=== PATIENT | female | born 1995 | race Caucasian/White ===

== ENCOUNTER 2016-07-28 03:44 | Emergency (ER) | payer MEDICAID, OTHER ==
[2016-07-28] MEDS ORDERED: Ondansetron INJ* 2 MG/ML VIAL IV ONE ×2 (04:00→06:07)
[2016-07-28] MEDS ORDERED: NS 0.9% 1000 ML* 1,000 ML IV ONE ×2 (04:00→05:39)
[2016-07-28 04:06] VITALS: BP 135/90
[2016-07-28 04:55] LABS: Hematocrit 43 % (35-47); Hemoglobin 14.1 g/dl (12.0-16.0); Mean Corpuscular HGB Conc 33 g/dl (31-36); Mean Corpuscular Hemoglobin 29 pg (27-31); Mean Corpuscular Volume 88 fL (80-97); Mean Platelet Volume 11 um3 (7.4-10.4); Red Blood Count 4.94 10^6/ul (4.0-5.4); Red Cell Distribution Width 13 % (10.5-15); White Blood Count 18.1 10^3/ul (3.5-10.8)
[2016-07-28 04:56] LABS: Add Diff/Slide Review? Slide Review Added; Comments Flag Yes
[2016-07-28 05:06] LABS: ALT 29 U/L (7-52); AST 18 U/L (13-39); Albumin 4.3 g/dL (3.2-5.2); Alkaline Phosphatase 68 U/L (34-104); Anion Gap 5 mmol/L (2-11); BUN/Creatinine Ratio 12.8 (8-20); Blood Urea Nitrogen 10 mg/dL (6-24); C Reactive Protein 2.36 mg/L (< 5.00); CO2 Carbon Dioxide 24 mmol/L (22-32); Calcium 9.7 mg/dL (8.6-10.3); Chloride 108 mmol/L (101-111); EGFR African American 121.1 (>60); EGFR Non-African American 94.2 (>60); Glucose 138 mg/dL (70-100); Lipase 20 U/L (11.0-82.0); Potassium 3.5 mmol/L (3.5-5.0); Sodium 137 mmol/L (133-145); Total Protein 7.3 g/dL (6.4-8.9)
[2016-07-28] MEDS ORDERED: Morphine INJ* 4 MG/ML 1 ML CARPUJECT IV ONE (05:15)
[2016-07-28] MEDS ORDERED: Ondansetron TAB* 4 MG PO ONE (06:08)
--- NOTE | 2016-07-28 06:10 | ED ---
Cecelia Gilbert Anna, scribed for Rody Soto MD on 07/28/16 at 0414 . GI/ HPI - HPI Summary HPI Summary: Patient is a 21 y/o female coming to [facility] presenting with sudden onset of repeated n/v/d that began three hours ago. She additionally reports stabbing abdominal pain. She describes the severity of her pain as 10/10. Hx is significant for ovarian cysts, bulimia, and cholecystectomy. LNMP today. . - History of Current Complaint Time Seen by Provider: 07/28/16 03:57 Stated Complaint: ABD PAIN/VOMITING Hx Obtained From: Patient Onset/Duration: Started Hours Ago, Still Present Severity: Moderate Current Severity: Moderate Pain Intensity: 10 Associated Signs and Symptoms: Positive: Nausea, Vomiting, Diarrhea - Allergy/Home Medications Allergies/Adverse Reactions: Allergies Allergy/AdvReac Type Severity Reaction Status Date / Time Ibuprofen Allergy Vomiting Verified 07/03/16 09:18 Tramadol AdvReac Hives Verified 06/06/16 17:00 PMH/Surg Hx/FS Hx/Imm Hx Endocrine/Hematology History: Denies: Hx Anticoagulant Therapy, Hx Diabetes, Hx Thyroid Disease Cardiovascular History: Denies: Hx Congestive Heart Failure, Hx Hypertension, Hx Pacemaker/ICD Respiratory History: Reports: Hx Asthma Denies: Hx Chronic Obstructive Pulmonary Disease (COPD) GI History: Reports: Hx Gastroesophageal Reflux Disease Denies: Hx Ulcer Comment Only: Other GI Disorders - OVARIAN CYSTS History: Reports: Other Problems/Disorders - ovarian cysts Denies: Hx Renal Disease Musculoskeletal History: Reports: Other Musculoskeletal History - morbid obesity Sensory History: Denies: Hx Contacts or Glasses, Hx Hearing Aid Opthamlomology History: Denies: Hx Contacts or Glasses Neurological History: Denies: Hx Dementia, Hx Seizures Psychiatric History: Reports: Hx Eating Disorder - bulemia age 13-17, Hx Depression Denies: Hx of Violent Episodes Against Others, Hx Substance Abuse - Surgical History Surgery Procedure, Year, and Place: Tonsills and Adenoids removed as a child, S/ P [facility] Hx Anesthesia Reactions: No Infectious Disease History: No Infectious Disease History: Denies: Hx Hepatitis, Hx Human Immunodeficiency Virus (HIV), Traveled Outside the [place] in Last 30 Days - Family History Known Family History: Positive: Other - Hx Bipolar disorder in mother; Hx alcohol abuse in grandmother Negative: Cardiac Disease, Hypertension, Diabetes - Social History 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 Lives: With Family Alcohol Use: None Substance Use Type: Reports: None Smoking Status (MU): Former Smoker Review of Systems Constitutional: Negative Eyes: Negative ENT: Negative Cardiovascular: Negative Respiratory: Negative Positive: Abdominal Pain, Vomiting, Diarrhea, Nausea Genitourinary: Negative Musculoskeletal: Negative Skin: Negative Neurological: Negative Psychological: Normal All Other Systems Reviewed And Are Negative: Yes Physical Exam Triage Information Reviewed: Yes Vital Signs On Initial Exam: Initial Vitals Temp Pulse Resp BP Pulse Ox 97.7 F 62 16 135/90 100 07/28/16 04:03 07/28/16 04:03 07/28/16 04:03 07/28/16 04:03 07/28/16 04:03 Vital Signs Reviewed: Yes Appearance: Positive: Ill-Appearing - moderately, Pain Distress - mild, Obese - morbidly Skin: Positive: Warm, Skin Color Reflects Adequate Perfusion, Dry Eyes: Positive: EOMI, AGUSTÍN ENT: Positive: Pharynx normal, TMs normal, Other - dry mucous membrane Neck: Positive: Supple, Nontender Respiratory/Lung Sounds: Positive: Clear to Auscultation, Breath Sounds Present Cardiovascular: Positive: RRR, Other - no gallops. Negative: Murmur, Rub Abdomen Description: Positive: Nontender, Soft, Other: - no rebound. Negative: Distended, Guarding Bowel Sounds: Positive: Present Musculoskeletal: Positive: Strength/ROM Intact. Negative: Edema Left, Edema Right Neurological: Positive: Sensory/Motor Intact, Alert, Oriented to Person Place, Time, CN Intact II-III - II-XII Psychiatric: Positive: Affect/Mood Appropriate Diagnostics - Vital Signs Vital Signs Temp Pulse Resp BP Pulse Ox 07/28/16 04:03 97.7 F 62 16 135/90 100 - Laboratory Lab Results: Lab Results 07/28/16 07/28/16 Range/Units 04:30 04:30 WBC 18.1 H (3.5-10.8) 10^3/ul RBC 4.94 (4.0-5.4) 10^6/ul Hgb 14.1 (12.0-16.0) g/dl Hct 43 (35-47) % MCV 88 (80-97) fL MCH 29 (27-31) pg MCHC 33 (31-36) g/dl RDW 13 (10.5-15) % Plt Count 210 (150-450) 10^3/ul MPV 11 H (7.4-10.4) um3 Neut % (Auto) 87.1 H (38-83) % Lymph % (Auto) 3.4 L (25-47) % [place] % (Auto) 4.6 (1-9) % Eos % (Auto) 1.8 (0-6) % Baso % (Auto) 3.1 H (0-2) % Absolute Neuts (auto) 15.8 H (1.5-7.7) 10^3/ul Absolute Lymphs (auto) 0.6 L (1.0-4.8) 10^3/ul Absolute Monos (auto) 0.8 (0-0.8) 10^3/ul Absolute Eos (auto) 0.3 (0-0.6) 10^3/ul Absolute Basos (auto) 0.6 H (0-0.2) 10^3/ul Absolute Nucleated RBC 0 10^3/ul Nucleated RBC % 0 Sodium 137 (133-145) mmol/L Potassium 3.5 (3.5-5.0) mmol/L Chloride 108 (101-111) mmol/L Carbon Dioxide 24 (22-32) mmol/L Anion Gap 5 (2-11) mmol/L BUN 10 (6-24) mg/dL Creatinine 0.78 (0.51-0.95) mg/dL Est GFR ( Amer) 121.1 (>60) Est GFR (Non-Af Amer) 94.2 (>60) BUN/Creatinine Ratio 12.8 (8-20) Glucose 138 H (70-100) mg/dL Calcium 9.7 (8.6-10.3) mg/dL Magnesium 2.0 (1.9-2.7) mg/dL Total Bilirubin 0.60 (0.2-1.0) mg/dL AST 18 (13-39) U/L ALT 29 (7-52) U/L Alkaline Phosphatase 68 (34-104) U/L C-Reactive Protein 2.36 (< 5.00) mg/L Total Protein 7.3 (6.4-8.9) g/dL Albumin 4.3 (3.2-5.2) g/dL Globulin 3.0 (2-4) g/dL Albumin/Globulin Ratio 1.4 (1-3) Lipase 20 (11.0-82.0) U/L Beta HCG, Quant < 0.60 mIU/mL Result Diagrams: 07/28/16 04:30 07/28/16 04:30 Lab Statement: Any lab studies that have been ordered have been reviewed, and results considered in the medical decision making process. GIGU Course/Dx - Course Course Of Treatment: pt feeling much better will be sent home with zofran and close f/u with pmd - Diagnoses Provider Diagnoses: Gastroenteritis Discharge - Discharge Plan Condition: Stable Disposition: HOME Discharge Disposition Comment: stable Patient Education Materials: Gastroenteritis (ED) Referrals: No Primary Care Phys,NOPCP [Primary Care Provider] - The documentation as recorded by the Cecelia bella Anna accurately reflects the service I personally performed and the decisions made by me, Rody Soto MD.
== END 2016-07-28 06:29 | disposition home or self-care (01) ==
LOC: ED 03:44
DX: K52.9 Noninfective gastroenteritis and colitis, unspecified (principal); E66.01 Morbid (severe) obesity due to excess calories; Z87.891 Personal history of nicotine dependence; Z68.43 Body mass index [BMI] 50.0-59.9, adult
CPT/HCPCS: 36415; 80053; 83690; 83735; 84702; 85025; 86140; 96360; 96365; 96374; 96375; 99282; A9270-GY; J2270; J2405